=== PATIENT | female | born 1940 | race Caucasian/White ===

== ENCOUNTER 2017-08-17 06:53 | Emergency (ER) | payer MEDICARE, MEDICAID ==
[2017-08-17] MEDS ORDERED: Metoclopramide 10 MG/2 ML SDV IVPUSH ONE (07:32)
[2017-08-17] MEDS ORDERED: HYDROmorphone 0.5 MG/0.5 ML Syringe IVPUSH ONE (07:32)
--- NOTE | 2017-08-17 07:37 | EDM.PDOC ---
ED HPI GENERAL MEDICAL PROBLEM - General Chief Complaint: Abdominal Pain Stated Complaint: RT SIDE AND BACK PAIN Time Seen by Provider: 08/17/17 07:31 Source of Information: Reports: Patient, Family (spouse and son. ) History Limitations: Reports: No Limitations - History of Present Illness INITIAL COMMENTS - FREE TEXT/NARRATIVE: 77-year-old female presents to the ED with diffuse right upper quadrant abdominal pain that radiates laterally towards her right flank. She states it started more in her back yesterday afternoon and gradually worsened as the day went on. When she got up to void at 4:00 this morning became much more intense and severe. Pain is constant with a colicky component. She has a hard time reading it but gives it a rate of 7-10 at times. Associated nausea without any vomiting. Lots of burping and belching. No previous similar type pain. No history of kidney stones. She does have a feeling of need to void and has voided about 7 or 8 times since 4:00 this morning. She has no dysuria or urgency to it. I'll function has been normal without any blood. Last bowel movement was yesterday morning.she has had no previous abdominal surgery. Onset: Gradual Onset Date: 08/16/17 Onset Time: 14:00 Duration: Hour(s):, Getting Worse Location: Reports: Abdomen ( He does not radiate down towards the groin.) Quality: Reports: Ache, Sharp, Stabbing (strong colicky component to the pain), Other Severity: Moderate Improves with: Reports: None (grades it is 78 out of 10.), Other (cannot sleep since for this morning no position is comfortable.) Worsens with: Reports: None Context: Denies: Activity, Exercise, Lifting, Sick Contact, Trauma, Other Associated Symptoms: Reports: Nausea/Vomiting (mild nausea without any vomiting) . 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: Other (see below) (none.) Right Flank Pain Score (Numeric/FACES): 6 - Related Data Allergies Allergy/AdvReac Type Severity Reaction Status Date / Time No Known Allergies Allergy Verified 08/17/17 07:04 Home Meds: Home Meds Levothyroxine [Synthroid] 50 mcg PO DAILY 08/17/17 [History] Losartan [Cozaar] 25 mg PO DAILY 08/17/17 [History] Nitrofurantoin [place]/Macrocryst [Macrobid] 100 mg PO BID #14 cap 08/17/17 [Rx] Ondansetron [Zofran ODT] 4 mg PO Q6H #5 tab.dis 08/17/17 [Rx] Pravastatin [Pravachol] 10 mg PO DAILY 08/17/17 [History] glipiZIDE [Glucotrol] 5 mg PO ACBREAKFAST 08/17/17 [History] oxyCODONE HCl/Acetaminophen [Percocet 5-325 mg Tablet] 1 - 2 each PO Q4H PRN # 16 tablet 08/17/17 [Rx] Past Medical History Cardiovascular History: Reports: High Cholesterol, Hypertension 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 Denies: Fever, Chills HEENT: Reports: No Symptoms Respiratory: Reports: No Symptoms Cardiovascular: Reports: No Symptoms Endocrine: Reports: No Symptoms GI/Abdominal: Reports: Abdominal Pain, Decreased Appetite, Flatus, Nausea. Denies: Constipation, Diarrhea (see history present illness), Distension, Hematemesis, Hematochezia, Mucous in Stool, Stool Incontinence, Vomiting ( intermittently), Other : Reports: Frequency, Incontinence (does have some mild stress and urge incontinence.) Musculoskeletal: Reports: Back Pain. Denies: Hand Pain (right flank pain.), Leg Pain, Foot Pain, Joint Pain, Joint Swelling Skin: Reports: No Symptoms Neurological: Reports: No Symptoms Psychiatric: Reports: No Symptoms Hematologic/Lymphatic: Reports: No Symptoms Immunologic: Reports: No Symptoms ED EXAM, GI/ABD - Physical Exam Exam: See Below Exam Limited By: No Limitations General Appearance: Alert, WD/WN, Mild Distress, Other (appears very tired from not sleeping.) Eyes: Bilateral: Normal Appearance (no jaundice.) Throat/Mouth: Other Head: Atraumatic Neck: Supple, Non-Tender, Full Range of Motion. No: Carotid Bruit, Lymphadenopathy (L), Lymphadenopathy (R) Respiratory/Chest: No Respiratory Distress, Lungs Clear, Normal Breath Sounds, No Accessory Muscle Use Cardiovascular: Normal Peripheral Pulses, Regular Rate, Rhythm, No Edema, No Murmur GI/Abdominal Exam: Normal Bowel Sounds, Soft, No Organomegaly, Distended ( slightly tympanitic to percussion throughout the abdomen), Tender (tenderness the right upper quadrant with a mildly positive Wilson sign.), Abnormal Bowel Sounds (.normal) Back Exam: Full Range of Motion, CVA Tenderness (R). No: CVA Tenderness (L) ( mild.) Extremities: Normal Inspection, Normal Range of Motion, Non-Tender, No Pedal Edema Neurological: Alert, Oriented, CN II-XII Intact, Normal Cognition, Normal Gait Psychiatric: Normal Affect, Normal Mood Skin Exam: Warm, Dry, Intact, Normal Color, No Rash Course - Vital Signs Last Recorded V/S: Last Vital Signs Temp 36.3 C 08/17/17 07:05 Pulse 90 08/17/17 07:05 Resp 16 08/17/17 07:05 BP 172/88 H 08/17/17 07:05 Pulse Ox 96 08/17/17 07:05 - Orders/Labs/Meds Orders: Active Orders 24 hr Category Date Time Status Abdomen 1V Flat [CR] Stat Exams 08/17/17 07:33 Taken Abdomen Pelvis w Cont [CT] Stat Exams 08/17/17 10:10 Taken Abdomen Pelvis wo Cont [CT] Stat Exams 08/17/17 08:42 Taken CULTURE URINE [RM] Stat Lab 08/17/17 08:45 Received Dextrose 5%-0.9% NaCl [Dextrose 5%-Normal Saline] 1,000 Med 08/17/17 07:45 Active ml IV ASDIRECTED Sodium Chloride 0.9% [Normal Saline] 100 ml Med 08/17/17 10:30 Active IV ASDIRECTED Sodium Chloride 0.9% [Saline Flush] Med 08/17/17 10:17 Active 10 ml FLUSH ONETIME PRN Medication Orders Dextrose/Sodium Chloride (Dextrose 5%-Normal Saline) 1,000 mls @ 250 mls/hr IV ASDIRECTED AIMEE Last Admin: 08/17/17 07:54 Dose: 250 mls/hr Sodium Chloride (Normal Saline) 100 mls @ 65 mls/hr IV ASDIRECTED AIMEE Last Admin: 08/17/17 10:43 Dose: 65 mls/hr Sodium Chloride (Saline Flush) 10 ml FLUSH ONETIME PRN PRN Reason: IV FLUSH Last Admin: 08/17/17 10:43 Dose: 10 ml Labs: Laboratory Tests 08/17/17 08/17/17 08/17/17 Range/Units 07:10 07:10 07:10 WBC 7.98 (3.98-10.04) K/mm3 RBC 4.70 (3.98-5.22) M/mm3 Hgb 14.3 (11.2-15.7) gm/L Hct 41.9 (34.1-44.9) % MCV 89.1 (79.4-94.8) fl MCH 30.4 (25.6-32.2) pg MCHC 34.1 (32.2-35.5) g/dl RDW Std Deviation 41.6 (36.4-46.3) fL Plt Count 208 (182-369) K/mm3 MPV 10.6 (9.4-12.3) fl Neutrophils % (Manual) 75 H (40-60) % Band Neutrophils % 0 (0-10) % Lymphocytes % (Manual) 22 (20-40) % Atypical Lymphs % 0 % Monocytes % (Manual) 3 (2-10) % Eosinophils % (Manual) 0 L (0.7-5.8) % Basophils % (Manual) 0 L (0.1-1.2) Platelet Estimate Adequate RBC Morph Comment Normal PT 9.9 (8.0-13.0) SECONDS INR 0.91 Sodium 139 (136-145) mEq/L Potassium 3.8 (3.5-5.1) mEq/L Chloride 102 (98-107) mEq/L Carbon Dioxide 24 (21-32) mEq/L Anion Gap 16.8 H (5-15) BUN 14 (7-18) mg/dL Creatinine 1.0 (0.55-1.02) mg/dL Est Cr Clr Drug Dosing 35.55 mL/min Estimated GFR (MDRD) 54 (>60) mL/min BUN/Creatinine Ratio 14.0 (14-18) Glucose 214 H (83-115) mg/dL Calcium 9.4 (8.5-10.1) mg/dL Magnesium 1.6 L (1.8-2.4) mg/dl Total Bilirubin 0.6 (0.2-1.0) mg/dL AST 22 (15-37) U/L ALT 22 (14-59) U/L Alkaline Phosphatase 101 (46-116) U/L Troponin I 0.046 (0.00-0.056) ng/mL C-Reactive Protein 0.8 (<1.0) mg/dL Total Protein 7.7 (6.4-8.2) g/dl Albumin 4.1 (3.4-5.0) g/dl Globulin 3.6 gm/dL Albumin/Globulin Ratio 1.1 (1-2) Lipase 275 (73-393) U/L Urine Color (Yellow) Urine Appearance (Clear) Urine pH (5.0-8.0) Ur Specific [place] (1.005-1.030) Urine Protein (Negative) Urine Glucose (UA) (Negative) Urine Ketones (Negative) Urine Occult Blood (Negative) Urine Nitrite (Negative) Urine Bilirubin (Negative) Urine Urobilinogen (0.2-1.0) Ur Leukocyte Esterase (Negative) Urine RBC (0-5) /hpf Urine WBC (0-5) /hpf Ur Epithelial Cells (0-5) /hpf Urine Bacteria (FEW) /hpf Urine Mucus (FEW) /hpf 08/17/17 Range/Units 08:45 WBC (3.98-10.04) K/mm3 RBC (3.98-5.22) M/mm3 Hgb (11.2-15.7) gm/L Hct (34.1-44.9) % MCV (79.4-94.8) fl MCH (25.6-32.2) pg MCHC (32.2-35.5) g/dl RDW Std Deviation (36.4-46.3) fL Plt Count (182-369) K/mm3 MPV (9.4-12.3) fl Neutrophils % (Manual) (40-60) % Band Neutrophils % (0-10) % Lymphocytes % (Manual) (20-40) % Atypical Lymphs % % Monocytes % (Manual) (2-10) % Eosinophils % (Manual) (0.7-5.8) % Basophils % (Manual) (0.1-1.2) Platelet Estimate RBC Morph Comment PT (8.0-13.0) SECONDS INR Sodium (136-145) mEq/L Potassium (3.5-5.1) mEq/L Chloride (98-107) mEq/L Carbon Dioxide (21-32) mEq/L Anion Gap (5-15) BUN (7-18) mg/dL Creatinine (0.55-1.02) mg/dL Est Cr Clr Drug Dosing mL/min Estimated GFR (MDRD) (>60) mL/min BUN/Creatinine Ratio (14-18) Glucose (83-115) mg/dL Calcium (8.5-10.1) mg/dL Magnesium (1.8-2.4) mg/dl Total Bilirubin (0.2-1.0) mg/dL AST (15-37) U/L ALT (14-59) U/L Alkaline Phosphatase (46-116) U/L Troponin I (0.00-0.056) ng/mL C-Reactive Protein (<1.0) mg/dL Total Protein (6.4-8.2) g/dl Albumin (3.4-5.0) g/dl Globulin gm/dL Albumin/Globulin Ratio (1-2) Lipase (73-393) U/L Urine Color Yellow (Yellow) Urine Appearance Clear (Clear) Urine pH 6.0 (5.0-8.0) Ur Specific [place] 1.025 (1.005-1.030) Urine Protein 1+ H (Negative) Urine Glucose (UA) Trace H (Negative) Urine Ketones Negative (Negative) Urine Occult Blood Trace-intact H (Negative) Urine Nitrite Positive H (Negative) Urine Bilirubin Negative (Negative) Urine Urobilinogen 0.2 (0.2-1.0) Ur Leukocyte Esterase Negative (Negative) Urine RBC 5-10 H (0-5) /hpf Urine WBC 5-10 H (0-5) /hpf Ur Epithelial Cells 0-5 (0-5) /hpf Urine Bacteria Many H (FEW) /hpf Urine Mucus Not seen (FEW) /hpf Meds: Medications Generic Name Dose Route Start Last Admin Trade Name Freq PRN Reason Stop Dose Admin Dextrose/Sodium Chloride 1,000 mls @ 250 mls/hr 08/17/17 07:45 08/17/17 07:54 Dextrose 5%-Normal Saline IV 250 mls/hr ASDIRECTED AIMEE Administration Sodium Chloride 100 mls @ 65 mls/hr 08/17/17 10:30 08/17/17 10:43 Normal Saline IV 65 mls/hr ASDIRECTED AIMEE Administration Sodium Chloride 10 ml 08/17/17 10:17 08/17/17 10:43 Saline Flush FLUSH 10 ml ONETIME PRN Administration IV FLUSH Discontinued Medications Generic Name Dose Route Start Last Admin Trade Name Freq PRN Reason Stop Dose Admin Hydromorphone HCl 0.5 mg 08/17/17 07:32 08/17/17 07:45 Dilaudid IVPUSH 08/17/17 07:33 0.5 mg ONETIME ONE Administration Ceftriaxone Sodium 1 gm/ 100 mls @ 200 mls/hr 08/17/17 10:10 08/17/17 10:55 Sodium Chloride IV 08/17/17 10:39 200 mls/hr ONETIME ONE Administration Iopamidol 100 ml 08/17/17 10:17 08/17/17 10:43 [id number] (76%) IVPUSH 08/17/17 10:18 100 ml ONETIME ONE Administration Metoclopramide HCl 7.5 mg 08/17/17 07:32 08/17/17 07:51 Reglan IVPUSH 08/17/17 07:33 7.5 mg ONETIME ONE Administration - Radiology Interpretation Free Text/Narrative:: 77-year-old female presents to the ED with right upper quadrant abdominal pain that seems to have started in the right flank and radiating around laterally to the right upper quadrant. Started about 14 1500 hrs. yesterday afternoon and is progressing progressively worsened. It became very intense about 0400 hrs. this morning when she got up to void and she has voided about 7 times since suggesting irritation of the ureter on the right side. Nobody of a large stone obstructing the UPJ clinically. Should nausea without vomiting. Plan urinalysis. IV will be D5 normal saline 250 mils per hour. Given Reglan 7.5 mg IV with Dilaudid 0.5 mg IV for pain relief. Given the abdomen will be obtained. - Re-Assessments/Exams Free Text/Narrative Re-Assessment/Exam: 08/17/17 08: KUB reveals scattered stool and air throughout the colon. There is one dilated slightly dilated loop of small bowel left lower quadrant but no signs of obstruction. No signs of renal stones were evident. 08/17/17 08:41Labs are back. White count was 7.98. Differential reveals 75% neutrophils no bands. Hemoglobin is 14.3. Hematocrit of 41.9. Platelets normal 208,000. PT is 9.9 INR 0.91. Chemistry shows a sodium of 139 potassium 3.8. Toward 102 bicarbonate 24. Anion gap mildly elevated at 16.8. BUNs 14 creatinine 1.0 EGFR is 54. Glucose elevated at 214. Magnesium slightly low at 1.6. Bilirubin 0.6 AST and ALT are both 22. Alkaline phosphatase 101. Troponin is less than 0.046. C-reactive protein 0.8 lipase normal at 275. Urinalysis is pending. I will go ahead and have CT the abdomen performed per renal protocol looking for stone 08/17/17 09:10 urinalysis is revealing positive nitrate with trace of blood. There is 5-10 RBCs and 5-10 WBCs per power field with many bacteria. Urine culture ordered. 08/17/17 10:11CT exam does not reveal any ureter obstructionon the Rt.. No definitive stone in the kidney or ureters.there are numerous peripelvic cysts on the right side. There is however a 2.6 cm homogenous mass in the superior pole of the right kidney suspicious for malignancy.she has a large gallstone in the base of the gallbladder and I think several small little stones as well. I will therefore have CT of the abdomen and pelvis performed with IV contrast only. Creatinine is 1.0. I will also give her Rocephin 1 g intravenously for suspect urinary tract infection. 08/17/17 11:03CT of the abdomen and pelvis done with contrast does identify a mass in the superior pole of the right kidney that takes up a large amount of contrast indicating that is highly vascular since suspicious for a malignancy. Doubt that this is hurting her. This is a coincidental finding. Therefore I think her pain is likely gallbladder in origin versus renal colic or ureteric colic from infection. I'm going to allow her home on a low-fat diet clear fluids primarily today such as Gatorade Powerade and advancing to soup broth and carbohydrate diet later today. I will send her home with 10 Percocet 5/3/25 milligram tablets one or 2 every 4-6 hours needed for pain relief. I'm going to continue oral antibiotic in the form of Macrobid 100 mg twice daily for 7 days to clear up urinary tract infection. She will need a referral to urology to discuss treatment for suspect right renal mass. Departure - Departure Time of Disposition: 10:13 Disposition: Home, Self-Care 01 Condition: Fair Clinical Impression: Right kidney mass Urinary tract infection Qualifiers: Urinary tract infection type: site unspecified Hematuria presence: without hematuria Qualified Code(s): N39.0 - Urinary tract infection, site not specified Cholelithiasis Qualifiers: Cholelithiasis location: gallbladder Cholecystitis acuity: acute Biliary obstruction: without biliary obstruction - Discharge Information Prescriptions: Nitrofurantoin [place]/Macrocryst [Macrobid] 100 mg PO BID #14 cap Ondansetron [Zofran ODT] 4 mg PO Q6H #5 tab.dis oxyCODONE HCl/Acetaminophen [Percocet 5-325 mg Tablet] 1 - 2 each PO Q4H PRN # 16 tablet PRN Reason: pain relief. Referrals: Marcelo Jackson MD [Primary Care Provider] - Forms: ED Department Discharge Additional Instructions: ED HPI GENERAL MEDICAL PROBLEM - General Chief Complaint: Abdominal Pain Stated Complaint: RT SIDE AND BACK PAIN Time Seen by Provider: 08/17/17 07:31 Source of Information: Reports: Patient, Family (spouse and son. ) History Limitations: Reports: No Limitations - History of Present Illness INITIAL COMMENTS - FREE TEXT/NARRATIVE: 77-year-old female presents to the ED with diffuse right upper quadrant abdominal pain that radiates laterally towards her right flank. She states it started more in her back yesterday afternoon and gradually worsened as the day went on. When she got up to void at 4:00 this morning became much more intense and severe. Pain is constant with a colicky component. She has a hard time reading it but gives it a rate of 7-10 at times. Associated nausea without any vomiting. Lots of burping and belching. No previous similar type pain. No history of kidney stones. She does have a feeling of need to void and has voided about 7 or 8 times since 4:00 this morning. She has no dysuria or urgency to it. I'll function has been normal without any blood. Last bowel movement was yesterday morning.she has had no previous abdominal surgery. Onset: Gradual Onset Date: 08/16/17 Onset Time: 14:00 Duration: Hour(s):, Getting Worse Location: Reports: Abdomen ( He does not radiate down towards the groin.) Quality: Reports: Ache, Sharp, Stabbing (strong colicky component to the pain), Other Severity: Moderate Improves with: Reports: None (grades it is 78 out of 10.), Other (cannot sleep since for this morning no position is comfortable.) Worsens with: Reports: None Context: Denies: Activity, Exercise, Lifting, Sick Contact, Trauma, Other Associated Symptoms: Reports: Nausea/Vomiting (mild nausea without any vomiting) . 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: Other (see below) (none.) Right Flank Pain Score (Numeric/FACES): 6 - Related Data Allergies Allergy/AdvReac Type Severity Reaction Status Date / Time No Known Allergies Allergy Verified 08/17/17 07:04 Home Meds: Home Meds Levothyroxine [Synthroid] 50 mcg PO DAILY 08/17/17 [History] Losartan [Cozaar] 25 mg PO DAILY 08/17/17 [History] Nitrofurantoin [place]/Macrocryst [Macrobid] 100 mg PO BID #14 cap 08/17/17 [Rx] Pravastatin [Pravachol] 10 mg PO DAILY 08/17/17 [History] glipiZIDE [Glucotrol] 5 mg PO ACBREAKFAST 08/17/17 [History] oxyCODONE HCl/Acetaminophen [Percocet 5-325 mg Tablet] 1 - 2 each PO Q4H PRN # 16 tablet 08/17/17 [Rx] Past Medical History Cardiovascular History: Reports: High Cholesterol, Hypertension 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 Denies: Fever, Chills HEENT: Reports: No Symptoms Respiratory: Reports: No Symptoms Cardiovascular: Reports: No Symptoms Endocrine: Reports: No Symptoms GI/Abdominal: Reports: Abdominal Pain, Decreased Appetite, Flatus, Nausea. Denies: Constipation, Diarrhea (see history present illness), Distension, Hematemesis, Hematochezia, Mucous in Stool, Stool Incontinence, Vomiting ( intermittently), Other : Reports: Frequency, Incontinence (does have some mild stress and urge incontinence.) Musculoskeletal: Reports: Back Pain. Denies: Hand Pain (right flank pain.), Leg Pain, Foot Pain, Joint Pain, Joint Swelling Skin: Reports: No Symptoms Neurological: Reports: No Symptoms Psychiatric: Reports: No Symptoms Hematologic/Lymphatic: Reports: No Symptoms Immunologic: Reports: No Symptoms ED EXAM, GI/ABD - Physical Exam Exam: See Below Exam Limited By: No Limitations General Appearance: Alert, WD/WN, Mild Distress, Other (appears very tired from not sleeping.) Eyes: Bilateral: Normal Appearance (no jaundice.) Throat/Mouth: Other Head: Atraumatic Neck: Supple, Non-Tender, Full Range of Motion. No: Carotid Bruit, Lymphadenopathy (L), Lymphadenopathy (R) Respiratory/Chest: No Respiratory Distress, Lungs Clear, Normal Breath Sounds, No Accessory Muscle Use Cardiovascular: Normal Peripheral Pulses, Regular Rate, Rhythm, No Edema, No Murmur GI/Abdominal Exam: Normal Bowel Sounds, Soft, No Organomegaly, Distended ( slightly tympanitic to percussion throughout the abdomen), Tender (tenderness the right upper quadrant with a mildly positive Wilson sign.), Abnormal Bowel Sounds (.normal) Back Exam: Full Range of Motion, CVA Tenderness (R). No: CVA Tenderness (L) ( mild.) Extremities: Normal Inspection, Normal Range of Motion, Non-Tender, No Pedal Edema Neurological: Alert, Oriented, CN II-XII Intact, Normal Cognition, Normal Gait Psychiatric: Normal Affect, Normal Mood Skin Exam: Warm, Dry, Intact, Normal Color, No Rash Course - Vital Signs Last Recorded V/S: Last Vital Signs Temp 36.3 C 08/17/17 07:05 Pulse 90 08/17/17 07:05 Resp 16 08/17/17 07:05 BP 172/88 H 08/17/17 07:05 Pulse Ox 96 08/17/17 07:05 - Orders/Labs/Meds Orders: Active Orders 24 hr Category Date Time Status Abdomen 1V Flat [CR] Stat Exams 08/17/17 07:33 Taken Abdomen Pelvis w Cont [CT] Stat Exams 08/17/17 10:10 Taken Abdomen Pelvis wo Cont [CT] Stat Exams 08/17/17 08:42 Taken CULTURE URINE [RM] Stat Lab 08/17/17 08:45 Received Dextrose 5%-0.9% NaCl [Dextrose 5%-Normal Saline] 1,000 Med 08/17/17 07:45 Active ml IV ASDIRECTED Sodium Chloride 0.9% [Normal Saline] 100 ml Med 08/17/17 10:30 Active IV ASDIRECTED Sodium Chloride 0.9% [Saline Flush] Med 08/17/17 10:17 Active 10 ml FLUSH ONETIME PRN Medication Orders Dextrose/Sodium Chloride (Dextrose 5%-Normal Saline) 1,000 mls @ 250 mls/hr IV ASDIRECTED AIMEE Last Admin: 08/17/17 07:54 Dose: 250 mls/hr Sodium Chloride (Normal Saline) 100 mls @ 65 mls/hr IV ASDIRECTED AIMEE Last Admin: 08/17/17 10:43 Dose: 65 mls/hr Sodium Chloride (Saline Flush) 10 ml FLUSH ONETIME PRN PRN Reason: IV FLUSH Last Admin: 08/17/17 10:43 Dose: 10 ml Labs: Laboratory Tests 08/17/17 08/17/17 08/17/17 Range/Units 07:10 07:10 07:10 WBC 7.98 (3.98-10.04) K/mm3 RBC 4.70 (3.98-5.22) M/mm3 Hgb 14.3 (11.2-15.7) gm/L Hct 41.9 (34.1-44.9) % MCV 89.1 (79.4-94.8) fl MCH 30.4 (25.6-32.2) pg MCHC 34.1 (32.2-35.5) g/dl RDW Std Deviation 41.6 (36.4-46.3) fL Plt Count 208 (182-369) K/mm3 MPV 10.6 (9.4-12.3) fl Neutrophils % (Manual) 75 H (40-60) % Band Neutrophils % 0 (0-10) % Lymphocytes % (Manual) 22 (20-40) % Atypical Lymphs % 0 % Monocytes % (Manual) 3 (2-10) % Eosinophils % (Manual) 0 L (0.7-5.8) % Basophils % (Manual) 0 L (0.1-1.2) Platelet Estimate Adequate RBC Morph Comment Normal PT 9.9 (8.0-13.0) SECONDS INR 0.91 Sodium 139 (136-145) mEq/L Potassium 3.8 (3.5-5.1) mEq/L Chloride 102 (98-107) mEq/L Carbon Dioxide 24 (21-32) mEq/L Anion Gap 16.8 H (5-15) BUN 14 (7-18) mg/dL Creatinine 1.0 (0.55-1.02) mg/dL Est Cr Clr Drug Dosing 35.55 mL/min Estimated GFR (MDRD) 54 (>60) mL/min BUN/Creatinine Ratio 14.0 (14-18) Glucose 214 H (83-115) mg/dL Calcium 9.4 (8.5-10.1) mg/dL Magnesium 1.6 L (1.8-2.4) mg/dl Total Bilirubin 0.6 (0.2-1.0) mg/dL AST 22 (15-37) U/L ALT 22 (14-59) U/L Alkaline Phosphatase 101 (46-116) U/L Troponin I 0.046 (0.00-0.056) ng/mL C-Reactive Protein 0.8 (<1.0) mg/dL Total Protein 7.7 (6.4-8.2) g/dl Albumin 4.1 (3.4-5.0) g/dl Globulin 3.6 gm/dL Albumin/Globulin Ratio 1.1 (1-2) Lipase 275 (73-393) U/L Urine Color (Yellow) Urine Appearance (Clear) Urine pH (5.0-8.0) Ur Specific [place] (1.005-1.030) Urine Protein (Negative) Urine Glucose (UA) (Negative) Urine Ketones (Negative) Urine Occult Blood (Negative) Urine Nitrite (Negative) Urine Bilirubin (Negative) Urine Urobilinogen (0.2-1.0) Ur Leukocyte Esterase (Negative) Urine RBC (0-5) /hpf Urine WBC (0-5) /hpf Ur Epithelial Cells (0-5) /hpf Urine Bacteria (FEW) /hpf Urine Mucus (FEW) /hpf 08/17/17 Range/Units 08:45 WBC (3.98-10.04) K/mm3 RBC (3.98-5.22) M/mm3 Hgb (11.2-15.7) gm/L Hct (34.1-44.9) % MCV (79.4-94.8) fl MCH (25.6-32.2) pg MCHC (32.2-35.5) g/dl RDW Std Deviation (36.4-46.3) fL Plt Count (182-369) K/mm3 MPV (9.4-12.3) fl Neutrophils % (Manual) (40-60) % Band Neutrophils % (0-10) % Lymphocytes % (Manual) (20-40) % Atypical Lymphs % % Monocytes % (Manual) (2-10) % Eosinophils % (Manual) (0.7-5.8) % Basophils % (Manual) (0.1-1.2) Platelet Estimate RBC Morph Comment PT (8.0-13.0) SECONDS INR Sodium (136-145) mEq/L Potassium (3.5-5.1) mEq/L Chloride (98-107) mEq/L Carbon Dioxide (21-32) mEq/L Anion Gap (5-15) BUN (7-18) mg/dL Creatinine (0.55-1.02) mg/dL Est Cr Clr Drug Dosing mL/min Estimated GFR (MDRD) (>60) mL/min BUN/Creatinine Ratio (14-18) Glucose (83-115) mg/dL Calcium (8.5-10.1) mg/dL Magnesium (1.8-2.4) mg/dl Total Bilirubin (0.2-1.0) mg/dL AST (15-37) U/L ALT (14-59) U/L Alkaline Phosphatase (46-116) U/L Troponin I (0.00-0.056) ng/mL C-Reactive Protein (<1.0) mg/dL Total Protein (6.4-8.2) g/dl Albumin (3.4-5.0) g/dl Globulin gm/dL Albumin/Globulin Ratio (1-2) Lipase (73-393) U/L Urine Color Yellow (Yellow) Urine Appearance Clear (Clear) Urine pH 6.0 (5.0-8.0) Ur Specific [place] 1.025 (1.005-1.030) Urine Protein 1+ H (Negative) Urine Glucose (UA) Trace H (Negative) Urine Ketones Negative (Negative) Urine Occult Blood Trace-intact H (Negative) Urine Nitrite Positive H (Negative) Urine Bilirubin Negative (Negative) Urine Urobilinogen 0.2 (0.2-1.0) Ur Leukocyte Esterase Negative (Negative) Urine RBC 5-10 H (0-5) /hpf Urine WBC 5-10 H (0-5) /hpf Ur Epithelial Cells 0-5 (0-5) /hpf Urine Bacteria Many H (FEW) /hpf Urine Mucus Not seen (FEW) /hpf Meds: Medications Generic Name Dose Route Start Last Admin Trade Name Freq PRN Reason Stop Dose Admin Dextrose/Sodium Chloride 1,000 mls @ 250 mls/hr 08/17/17 07:45 08/17/17 07:54 Dextrose 5%-Normal Saline IV 250 mls/hr ASDIRECTED AIMEE Administration Sodium Chloride 100 mls @ 65 mls/hr 08/17/17 10:30 08/17/17 10:43 Normal Saline IV 65 mls/hr ASDIRECTED AIMEE Administration Sodium Chloride 10 ml 08/17/17 10:17 08/17/17 10:43 Saline Flush FLUSH 10 ml ONETIME PRN Administration IV FLUSH Discontinued Medications Generic Name Dose Route Start Last Admin Trade Name Freq PRN Reason Stop Dose Admin Hydromorphone HCl 0.5 mg 08/17/17 07:32 08/17/17 07:45 Dilaudid IVPUSH 08/17/17 07:33 0.5 mg ONETIME ONE Administration Ceftriaxone Sodium 1 gm/ 100 mls @ 200 mls/hr 08/17/17 10:10 08/17/17 10:55 Sodium Chloride IV 08/17/17 10:39 200 mls/hr ONETIME ONE Administration Iopamidol 100 ml 08/17/17 10:17 08/17/17 10:43 Isovue-370 (76%) IVPUSH 08/17/17 10:18 100 ml ONETIME ONE Administration Metoclopramide HCl 7.5 mg 08/17/17 07:32 08/17/17 07:51 Reglan IVPUSH 08/17/17 07:33 7.5 mg ONETIME ONE Administration - Radiology Interpretation Free Text/Narrative:: 77-year-old female presents to the ED with right upper quadrant abdominal pain that seems to have started in the right flank and radiating around laterally to the right upper quadrant. Started about 14 1500 hrs. yesterday afternoon and is progressing progressively worsened. It became very intense about 0400 hrs. this morning when she got up to void and she has voided about 7 times since suggesting irritation of the ureter on the right side. Nobody of a large stone obstructing the UPJ clinically. Should nausea without vomiting. Plan urinalysis. IV will be D5 normal saline 250 mils per hour. Given Reglan 7.5 mg IV with Dilaudid 0.5 mg IV for pain relief. Given the abdomen will be obtained. - Re-Assessments/Exams Free Text/Narrative Re-Assessment/Exam: 08/17/17 08: KUB reveals scattered stool and air throughout the colon. There is one dilated slightly dilated loop of small bowel left lower quadrant but no signs of obstruction. No signs of renal stones were evident. 08/17/17 08:41Labs are back. White count was 7.98. Differential reveals 75% neutrophils no bands. Hemoglobin is 14.3. Hematocrit of 41.9. Platelets normal 208,000. PT is 9.9 INR 0.91. Chemistry shows a sodium of 139 potassium 3.8. Toward 102 bicarbonate 24. Anion gap mildly elevated at 16.8. BUNs 14 creatinine 1.0 EGFR is 54. Glucose elevated at 214. Magnesium slightly low at 1.6. Bilirubin 0.6 AST and ALT are both 22. Alkaline phosphatase 101. Troponin is less than 0.046. C-reactive protein 0.8 lipase normal at 275. Urinalysis is pending. I will go ahead and have CT the abdomen performed per renal protocol looking for stone 08/17/17 09:10 urinalysis is revealing positive nitrate with trace of blood. There is 5-10 RBCs and 5-10 WBCs per power field with many bacteria. Urine culture ordered. 08/17/17 10:11CT exam does not reveal any ureter obstructionon the Rt.. No definitive stone in the kidney or ureters.there are numerous peripelvic cysts on the right side. There is however a 2.6 cm homogenous mass in the superior pole of the right kidney suspicious for malignancy.she has a large gallstone in the base of the gallbladder and I think several small little stones as well. I will therefore have CT of the abdomen and pelvis performed with IV contrast only. Creatinine is 1.0. I will also give her Rocephin 1 g intravenously for suspect urinary tract infection. 08/17/17 11:03CT of the abdomen and pelvis done with contrast does identify a mass in the superior pole of the right kidney that takes up a large amount of contrast indicating that is highly vascular since suspicious for a malignancy. Doubt that this is hurting her. This is a coincidental finding. Therefore I think her pain is likely gallbladder in origin versus renal colic or ureteric colic from infection. I'm going to allow her home on a low-fat diet clear fluids primarily today such as Gatorade Powerade and advancing to soup broth and carbohydrate diet later today. I will send her home with 10 Percocet 5/3/25 milligram tablets one or 2 every 4-6 hours needed for pain relief. I'm going to continue oral antibiotic in the form of Macrobid 100 mg twice daily for 7 days to clear up urinary tract infection. She will need a referral to urology to discuss treatment for suspect right renal mass. Departure - Departure Time of Disposition: 10:13 Disposition: Home, Self-Care 01 Condition: Fair Clinical Impression: Right kidney mass Urinary tract infection Qualifiers: Urinary tract infection type: site unspecified Hematuria presence: without hematuria Qualified Code(s): N39.0 - Urinary tract infection, site not specified Cholelithiasis Qualifiers: Cholelithiasis location: gallbladder Cholecystitis acuity: acute Biliary obstruction: without biliary obstruction - Discharge Information Prescriptions: Nitrofurantoin [place]/Macrocryst [Macrobid] 100 mg PO BID #14 cap oxyCODONE HCl/Acetaminophen [Percocet 5-325 mg Tablet] 1 - 2 each PO Q4H PRN # 16 tablet PRN Reason: pain relief. Referrals: Marcelo Jackson MD [Primary Care Provider] - Forms: ED Department Discharge - My Orders Last 24 Hours: My Active Orders 08/17/17 07:33 Abdomen 1V Flat [CR] Stat 08/17/17 07:45 Dextrose 5%-0.9% NaCl [Dextrose 5%-Normal Saline] 1,000 ml IV ASDIRECTED 08/17/17 08:42 Abdomen Pelvis wo Cont [CT] Stat 08/17/17 08:45 CULTURE URINE [RM] Stat 08/17/17 10:10 Abdomen Pelvis w Cont [CT] Stat 08/17/17 10:17 Sodium Chloride 0.9% [Saline Flush] 10 ml FLUSH ONETIME PRN 08/17/17 10:30 Sodium Chloride 0.9% [Normal Saline] 100 ml IV ASDIRECTED - Assessment/Plan Last 24 Hours: My Active Orders 08/17/17 07:33 Abdomen 1V Flat [CR] Stat 08/17/17 07:45 Dextrose 5%-0.9% NaCl [Dextrose 5%-Normal Saline] 1,000 ml IV ASDIRECTED 08/17/17 08:42 Abdomen Pelvis wo Cont [CT] Stat 08/17/17 08:45 CULTURE URINE [RM] Stat 08/17/17 10:10 Abdomen Pelvis w Cont [CT] Stat 08/17/17 10:17 Sodium Chloride 0.9% [Saline Flush] 10 ml FLUSH ONETIME PRN 08/17/17 10:30 Sodium Chloride 0.9% [Normal Saline] 100 ml IV ASDIRECTED Evaluation the emergency room today in regards to development of right upper quadrant abdominal pain and right flank pain charting yesterday but worsening overnight.initial examination was unclear as to whether the gallbladder was the culprit versus kidney. Investigations reveal that there is a urinary tract infection process and you were treated with initial dose of antibiotic Rocephin 1 g intravenously while in the ED. Imaging of the right kidney and abdomen reveals gallstones within the gallbladder a large stone and several small stones which I think is likely the cause of your pain today. There was no sign of a kidney stone or blockage of the ureter drainage system of the right kidney. However the CT did identify a mass in the superior pole of the right kidney. Repeat CT scan of the abdomen with contrast revealed that there is a large amount of contrast uptake by this lesion suggesting that it is probably a cancer. Therefore further evaluation by urologist is required and likely definitive surgery to remove this tumor as it appears to be picked up coincidentally and therefore chance for cure is very high. I will send you home with some pain medication Percocet 03/13/25 one to 2 every 4-6 hours needed for pain relief and Zofran 4 mg under the tongue every 4-6 hours if needed for nausea relief. Diet today should be clear fluids for the next 12 hours such as Gatorade Powerade and when hungry suggest a nondairy soup etc. [place] noodle turkey rice. Suggest following a low fat diet for the next several days to prevent recurrence of gallbladder attack which I think caused her pain today. At some point time if you continue to have similar type pain in the right upper quadrant the gallbladder may also have to be removed. - My Orders Last 24 Hours: My Active Orders 08/17/17 07:33 Abdomen 1V Flat [CR] Stat 08/17/17 07:45 Dextrose 5%-0.9% NaCl [Dextrose 5%-Normal Saline] 1,000 ml IV ASDIRECTED 08/17/17 08:42 Abdomen Pelvis wo Cont [CT] Stat 08/17/17 08:45 CULTURE URINE [RM] Stat 08/17/17 10:10 Abdomen Pelvis w Cont [CT] Stat 08/17/17 10:17 Sodium Chloride 0.9% [Saline Flush] 10 ml FLUSH ONETIME PRN 08/17/17 10:30 Sodium Chloride 0.9% [Normal Saline] 100 ml IV ASDIRECTED - Assessment/Plan Last 24 Hours: My Active Orders 08/17/17 07:33 Abdomen 1V Flat [CR] Stat 08/17/17 07:45 Dextrose 5%-0.9% NaCl [Dextrose 5%-Normal Saline] 1,000 ml IV ASDIRECTED 08/17/17 08:42 Abdomen Pelvis wo Cont [CT] Stat 08/17/17 08:45 CULTURE URINE [RM] Stat 08/17/17 10:10 Abdomen Pelvis w Cont [CT] Stat 08/17/17 10:17 Sodium Chloride 0.9% [Saline Flush] 10 ml FLUSH ONETIME PRN 08/17/17 10:30 Sodium Chloride 0.9% [Normal Saline] 100 ml IV ASDIRECTED
[2017-08-17] MEDS ORDERED: Dextrose 5%-0.9% NaCl 1,000 ML IV SCH (07:45)
[2017-08-17 08:03] VITALS: BP 172/88
[2017-08-17] MEDS ORDERED: cefTRIAXone 1 GM in Sodium Chloride 0.9% 100 ML IV ONE (10:10)
[2017-08-17] MEDS ORDERED: Iopamidol 755 Mg/ML 100 ML Bottle IVPUSH ONE (10:17)
[2017-08-17] MEDS ORDERED: Sodium Chloride 0.9% 10 ML Syringe FLUSH PRN (10:17)
[2017-08-17] MEDS ORDERED: Sodium Chloride 0.9% 100 ML IV SCH (10:30)
--- NOTE | 2017-08-19 10:25 | CT ---
CT abdomen and abdomen (with contrast) Technique: Arterial phase imaging was obtained from above the dome of the diaphragm inferiorly through the kidneys. Delayed venous imaging then obtained through the same portions of the abdomen. Delayed 5 minute images were obtained from above the dome of the diaphragm inferiorly through the pubic symphysis. Comparison: Previous study of 08/13/12 and previous noncontrast study performed earlier on the same day. Findings: Previous mass seen on noncontrast study shows enhancement on current exam having pattern typical of neoplasm. This measures approximately 2.6 cm x 2.5 cm in size. No other abnormal enhancing lesions are seen within the kidneys. Mild parapelvic cysts are seen. Delayed images show no filling defects within the collecting system on either side. There is contrast excretion into the ureters and bladder. Renal vein shows enhancement without thrombus. Single renal arteries are identified. Visualized lung bases show mild fibrosis and scarring. Liver shows no focal abnormality. Spleen appears within normal limits. Adrenal glands show no nodule. Pancreas is within normal limits. Single gallstone again noted within the gallbladder. Aorta and iliac vessels shows atherosclerotic change without aneurysmal dilatation. No retroperitoneal adenopathy or mesenteric abnormalities are seen. Colonic diverticuli are again seen without diverticulitis. No pelvic mass or adenopathy is seen. Bone window settings were reviewed which show degenerative change within the spine. Impression: 1. Mass within the mid to lower right kidney most likely representing renal cell carcinoma. Given its slight change from prior CT exam of 08/13/12 this is most likely a low-grade. 2. Single renal arteries. Patent renal veins are noted. Incidental parapelvic cysts are seen. 3. No filling defects within the collecting system or ureters of either kidney. 4. Incidental gallstone again noted. Other incidental findings as noted above. Diagnostic code #9 I agree with preliminary report issued by [facility] ([facility] preliminary report dictated on 08/17/17, 12:18 PM Central Time)
--- NOTE | 2017-08-19 10:26 | CT ---
CT abdomen and pelvis Technique: Multiple axial sections were obtained from above the dome of the diaphragm inferiorly to the pubic symphysis. Intravenous and oral contrast not utilized. Comparison: Previous CT exam of 08/13/12. Findings: Solid appearing abnormality noted within the right mid to lower kidney. This measures about 2.6 cm. There is a similar finding being seen in retrospect on the right kidney previously measuring about 2.4 cm. This has minimally increased in size from previous exam making it suspicious for renal cell carcinoma although lower grade. Parapelvic cyst seen within both kidneys. No ureteral dilatation or ureteral stone is seen. Visualized lung bases show nothing acute. Liver shows no focal parenchymal abnormality. Adrenal glands show no nodule. Gallstone noted within the gallbladder. Pancreas is within normal limits. Aorta shows atherosclerotic calcification without aneurysm. No retroperitoneal adenopathy or mesenteric abnormalities are seen. Appendix is seen which appears normal. Diverticuli are seen within the descending and sigmoid colon without inflammatory change. No pelvic mass or adenopathy is seen. Impression: 1. 2.6 cm solid mass within the mid to lower right kidney. This is seen on retrospect from prior CT exam measuring 2.4 cm. Given the slight interval change findings are suspicious for renal cell carcinoma most likely low-grade. 2. Gallstone within the gallbladder. 3. Incidental parapelvic cysts and other incidental findings. Diagnostic code #9 I agree with preliminary report issued by [facility] ([facility] preliminary report dictated on 08/17/17, 10:46 AM Central Time)
--- NOTE | 2017-08-19 10:26 | CR ---
Abdomen: Supine view of the abdomen was obtained. Comparison: No prior abdominal x-ray. Bowel gas pattern appears normal. Calcifications are seen within the pelvis compatible with phleboliths. Bony structures appear within normal limits for the patient's age. Impression: 1. Incidental findings. Diagnostic code #2
== END 2017-08-17 11:52 | disposition home or self-care (01) ==
LOC: JD.ED 06:53
DX: K80.00 Calculus of gallbladder with acute cholecystitis without obstruction (principal); N28.89 Other specified disorders of kidney and ureter; N39.0 Urinary tract infection, site not specified; E78.00 Pure hypercholesterolemia, unspecified; I10 Essential (primary) hypertension; E11.9 Type 2 diabetes mellitus without complications; Z79.899 Other long term (current) drug therapy
CPT/HCPCS: 36415; 74000; 74176; 74177; 80053; 81001; 83690; 83735; 84484; 85025; 85610; 86140; 87086; 87088; 87186; 96361; 96365; 96375; 99285; J0696; J1170; J2765; J7030; J7042; J7050; Q9967

== ENCOUNTER 2019-07-09 17:18 | Emergency (ER) | payer MEDICARE, MEDICAID ==
[2019-07-09] MEDS ORDERED: Ondansetron 4 MG/2 ML SDV IVPUSH ONE (17:29)
[2019-07-09] MEDS ORDERED: Sodium Chloride 0.9% 10 ML Syringe FLUSH PRN (17:29)
[2019-07-09] MEDS ORDERED: Famotidine 20 MG/2 ML SDV IVPUSH ONE (17:29)
[2019-07-09] MEDS ORDERED: Sodium Chloride 0.9% 1,000 ML IV SCH (17:30)
[2019-07-09 17:32] VITALS: BP 147/83
--- NOTE | 2019-07-09 18:11 | EDM.PDOC ---
ED HPI GENERAL MEDICAL PROBLEM - General Chief Complaint: General Stated Complaint: CHEST PAIN,HIGH BLOOD SUGAR Time Seen by Provider: 07/09/19 17:28 Source of Information: Reports: Patient, Family History Limitations: Reports: No Limitations - History of Present Illness INITIAL COMMENTS - FREE TEXT/NARRATIVE: The patient presents with generalized weakness and chest pain. This has been going on for a day. She had 2 teeth removed this week. She has not been eating or drinking much since the procedure. She was on something for pain. She is worried because her blood sugar has been elevated. She is on glipizide for her blood sugars. She says the pain is in the chest and she is not short of breath. She has no fever, chills or cough. She has no abdominal pain, nausea or vomiting. She has no dysuria, diarrhea or constipation. Onset: Gradual Duration: Day(s): Location: Reports: Chest Quality: Reports: Sharp Severity: Moderate Improves with: Reports: None Worsens with: Reports: None Associated Symptoms: Reports: Chest Pain. Denies: Cough, Fever/Chills, Headaches, Nausea/Vomiting, Shortness of Breath Epigastric Pain Score (Numeric/FACES): 5 - Related Data Allergies Allergy/AdvReac Type Severity Reaction Status Date / Time No Known Allergies Allergy Verified 06/14/18 10:05 Home Meds: Home Meds Levothyroxine [Synthroid] 50 mcg PO DAILY 08/17/17 [History] Losartan [Cozaar] 25 mg PO DAILY 08/17/17 [History] Pravastatin [Pravachol] 10 mg PO DAILY 08/17/17 [History] glipiZIDE [Glucotrol] 5 mg PO ACBREAKFAST 08/17/17 [History] Cephalexin [Keflex] 500 mg PO BID #10 capsule 07/09/19 [Rx] Past Medical History Cardiovascular History: Reports: High Cholesterol, Hypertension Genitourinary History: Reports: Other (See Below) Other Genitourinary History: renal mass. Unsure if malignant. [employer] History: Reports: Endocrine/Metabolic History: Reports: Diabetes, Type II, Hypothyroidism Social & Family History - Family History Family Medical History: Noncontributory - Tobacco Use Smoking Status *Q: Never Smoker - Caffeine Use Caffeine Use: Reports: Coffee - Recreational Drug Use Recreational Drug Use: No - Living Situation & Occupation Living situation: Reports: Occupation: Retired ED ROS GENERAL - Review of Systems Review Of Systems: See Below Constitutional: Reports: No Symptoms HEENT: Reports: No Symptoms Respiratory: Reports: No Symptoms Cardiovascular: Reports: Chest Pain Endocrine: Reports: No Symptoms GI/Abdominal: Reports: No Symptoms : Reports: No Symptoms Musculoskeletal: Reports: No Symptoms ED EXAM, GENERAL - Physical Exam Exam: See Below Exam Limited By: No Limitations General Appearance: Alert, No Apparent Distress Ears: Normal External Exam Nose: Normal Inspection Throat/Mouth: Normal Inspection Head: Atraumatic, Normocephalic Neck: Normal Inspection Respiratory/Chest: No Respiratory Distress, Lungs Clear, Normal Breath Sounds Cardiovascular: Regular Rate, Rhythm, No Edema, No Murmur GI/Abdominal: Soft, Non-Tender, No Organomegaly, No Mass Back Exam: Normal Inspection Extremities: Normal Inspection Course - Vital Signs Last Recorded V/S: Last Vital Signs Temp 98.2 F 07/09/19 17:29 Pulse 110 H 07/09/19 17:29 Resp 18 07/09/19 17:29 BP 147/83 H 07/09/19 17:29 Pulse Ox 93 L 07/09/19 17:29 - Orders/Labs/Meds Orders: Active Orders 24 hr Category Date Time Status Cardiac Monitoring [RC] . DIRECTED Care 07/09/19 17:29 Active EKG Documentation Completion [RC] ASDIRECTED Care 07/09/19 17:26 Active Peripheral IV Care [RC] . DIRECTED Care 07/09/19 17:29 Active Chest 1V Frontal [CR] Stat Exams 07/09/19 17:29 Taken Sodium Chloride 0.9% [Normal Saline] 1,000 ml Med 07/09/19 17:30 Active IV .BOLUS Sodium Chloride 0.9% [Saline Flush] Med 07/09/19 17:29 Active 10 ml FLUSH ASDIRECTED PRN cephALEXin [Keflex] Med 07/09/19 19:24 Once 500 mg PO ONETIME ONE ED Antiemetic Medication Reflex [OM.PC] Stat Oth 07/09/19 17:29 Ordered Peripheral IV Insertion Adult [OM.PC] Stat Oth 07/09/19 17:29 Ordered EKG 12 Lead [EK] Stat Ther 07/09/19 17:26 Ordered Medication Orders Sodium Chloride (Normal Saline) 1,000 mls @ 1,000 mls/hr IV .BOLUS AIMEE Last Admin: 07/09/19 17:46 Dose: 1,000 mls/hr Sodium Chloride (Saline Flush) 10 ml FLUSH ASDIRECTED PRN PRN Reason: Keep Vein Open Last Admin: 07/09/19 17:46 Dose: 10 ml Labs: Laboratory Tests 07/09/19 07/09/19 07/09/19 Range/Units 17:28 17:45 17:45 WBC 8.15 (3.98-10.04) K/mm3 RBC 4.63 (3.98-5.22) M/mm3 Hgb 14.5 (11.2-15.7) gm/L Hct 42.2 (34.1-44.9) % MCV 91.1 (79.4-94.8) fl MCH 31.3 (25.6-32.2) pg MCHC 34.4 (32.2-35.5) g/dl RDW Std Deviation 41.1 (36.4-46.3) fL Plt Count 204 (182-369) K/mm3 MPV 10.4 (9.4-12.3) fl Neut % (Auto) 81.1 H (34.0-71.1) % Lymph % (Auto) 8.1 L (19.3-51.7) % [place] % (Auto) 10.1 (4.7-12.5) % Eos % (Auto) 0.2 L (0.7-5.8) Baso % (Auto) 0.1 (0.1-1.2) % Neut # (Auto) 6.61 H (1.56-6.13) K/mm3 Lymph # (Auto) 0.66 L (1.18-3.74) K/mm3 [place] # (Auto) 0.82 H (0.24-0.36) K/mm3 Eos # (Auto) 0.02 L (0.04-0.36) K/mm3 Baso # (Auto) 0.01 (0.01-0.08) K/mm3 Manual Slide Review Normal smear Sodium 136 (136-145) mEq/L Potassium 4.2 (3.5-5.1) mEq/L Chloride 102 (98-107) mEq/L Carbon Dioxide 24 (21-32) mEq/L Anion Gap 14.2 (5-15) BUN 19 H (7-18) mg/dL Creatinine 1.1 H (0.55-1.02) mg/dL Est Cr Clr Drug Dosing 32.80 mL/min Estimated GFR (MDRD) 48 (>60) mL/min BUN/Creatinine Ratio 17.3 (14-18) Glucose 318 H (83-115) mg/dL POC Glucose 304 H (83-110) mg/dL Calcium 9.2 (8.5-10.1) mg/dL Total Bilirubin 0.6 (0.2-1.0) mg/dL AST 12 L (15-37) U/L ALT 22 (14-59) U/L Alkaline Phosphatase 119 H (46-116) U/L Troponin I < 0.017 (0.00-0.056) ng/mL Total Protein 7.6 (6.4-8.2) g/dl Albumin 3.6 (3.4-5.0) g/dl Globulin 4.0 gm/dL Albumin/Globulin Ratio 0.9 L (1-2) Urine Color (Yellow) Urine Appearance (Clear) Urine pH (5.0-8.0) Ur Specific [place] (1.005-1.030) Urine Protein (Negative) Urine Glucose (UA) (Negative) Urine Ketones (Negative) Urine Occult Blood (Negative) Urine Nitrite (Negative) Urine Bilirubin (Negative) Urine Urobilinogen (0.2-1.0) Ur Leukocyte Esterase (Negative) Urine RBC (0-5) /hpf Urine WBC (0-5) /hpf Ur Squamous Epith Cells (0-5) /hpf Urine Bacteria (FEW) /hpf Urine Mucus (FEW) /hpf 07/09/19 07/09/19 Range/Units 18:55 19:00 WBC (3.98-10.04) K/mm3 RBC (3.98-5.22) M/mm3 Hgb (11.2-15.7) gm/L Hct (34.1-44.9) % MCV (79.4-94.8) fl MCH (25.6-32.2) pg MCHC (32.2-35.5) g/dl RDW Std Deviation (36.4-46.3) fL Plt Count (182-369) K/mm3 MPV (9.4-12.3) fl Neut % (Auto) (34.0-71.1) % Lymph % (Auto) (19.3-51.7) % [place] % (Auto) (4.7-12.5) % Eos % (Auto) (0.7-5.8) Baso % (Auto) (0.1-1.2) % Neut # (Auto) (1.56-6.13) K/mm3 Lymph # (Auto) (1.18-3.74) K/mm3 [place] # (Auto) (0.24-0.36) K/mm3 Eos # (Auto) (0.04-0.36) K/mm3 Baso # (Auto) (0.01-0.08) K/mm3 Manual Slide Review Sodium (136-145) mEq/L Potassium (3.5-5.1) mEq/L Chloride (98-107) mEq/L Carbon Dioxide (21-32) mEq/L Anion Gap (5-15) BUN (7-18) mg/dL Creatinine (0.55-1.02) mg/dL Est Cr Clr Drug Dosing mL/min Estimated GFR (MDRD) (>60) mL/min BUN/Creatinine Ratio (14-18) Glucose (83-115) mg/dL POC Glucose 281 H (83-110) mg/dL Calcium (8.5-10.1) mg/dL Total Bilirubin (0.2-1.0) mg/dL AST (15-37) U/L ALT (14-59) U/L Alkaline Phosphatase (46-116) U/L Troponin I (0.00-0.056) ng/mL Total Protein (6.4-8.2) g/dl Albumin (3.4-5.0) g/dl Globulin gm/dL Albumin/Globulin Ratio (1-2) Urine Color Light yellow (Yellow) Urine Appearance Slt cloudy H (Clear) Urine pH 5.5 (5.0-8.0) Ur Specific [place] 1.010 (1.005-1.030) Urine Protein Trace H (Negative) Urine Glucose (UA) 1+ H (Negative) Urine Ketones Negative (Negative) Urine Occult Blood 1+ H (Negative) Urine Nitrite Positive H (Negative) Urine Bilirubin Negative (Negative) Urine Urobilinogen 0.2 (0.2-1.0) Ur Leukocyte Esterase 1+ H (Negative) Urine RBC 0-5 (0-5) /hpf Urine WBC 40-50 H (0-5) /hpf Ur Squamous Epith Cells 0-5 (0-5) /hpf Urine Bacteria Many H (FEW) /hpf Urine Mucus Not seen (FEW) /hpf Meds: Medications Generic Name Dose Route Start Last Admin Trade Name Freq PRN Reason Stop Dose Admin Sodium Chloride 1,000 mls @ 1,000 mls/hr 07/09/19 17:30 07/09/19 17:46 Normal Saline IV 1,000 mls/hr .BOLUS AIMEE Administration Sodium Chloride 10 ml 07/09/19 17:29 07/09/19 17:46 Saline Flush FLUSH 10 ml ASDIRECTED PRN Administration Keep Vein Open Discontinued Medications Generic Name Dose Route Start Last Admin Trade Name Freq PRN Reason Stop Dose Admin Famotidine 20 mg 07/09/19 17:29 07/09/19 17:46 Pepcid IVPUSH 07/09/19 17:30 20 mg ONETIME ONE Administration Ondansetron HCl 4 mg 07/09/19 17:29 07/09/19 17:46 Zofran IVPUSH 07/09/19 17:30 4 mg ONETIME ONE Administration - Re-Assessments/Exams Free Text/Narrative Re-Assessment/Exam: 07/09/19 18:10 I ordered an IV NS 1L bolus, EKG, CXR, UA and labs. He oxygen saturations did drop so I had my nurse put her on some oxygen. 07/09/19 19:25 Her EKG shows a sinus tachycardia at a rate of 103 with no acute changes. Her CXR looks good. Her CBC looks good. Her creatinine is elevated at 1.1. Her glucose was 318. Her UA shows a UTI. Her oxygen saturations are better and she is on room air now. She feels much better. I will give her a keflex now and a prescription for more. Departure - Departure Time of Disposition: 19:30 Disposition: Home, Self-Care 01 Condition: Good Clinical Impression: UTI, Urinary tract infectious disease, Atypical chest pain - Discharge Information *PRESCRIPTION DRUG MONITORING PROGRAM REVIEWED*: No *COPY OF PRESCRIPTION DRUG MONITORING REPORT IN PATIENT CASA: No Prescriptions: Cephalexin [Keflex] 500 mg PO BID #10 capsule Referrals: Marcelo Jackson MD [Primary Care Provider] - 1 Week Forms: ED Department Discharge Additional Instructions: Take the keflex 2 times per day for 5 days. Drink plenty of fluids. Keep taking your medications as prescribed. Please return if you are worse. - My Orders Last 24 Hours: My Active Orders 07/09/19 17:26 EKG Documentation Completion [RC] ASDIRECTED EKG 12 Lead [EK] Stat 07/09/19 17:29 Cardiac Monitoring [RC] . DIRECTED Peripheral IV Care [RC] . DIRECTED Chest 1V Frontal [CR] Stat Sodium Chloride 0.9% [Saline Flush] 10 ml FLUSH ASDIRECTED PRN ED Antiemetic Medication Reflex [OM.PC] Stat Peripheral IV Insertion Adult [OM.PC] Stat 07/09/19 17:30 Sodium Chloride 0.9% [Normal Saline] 1,000 ml IV .BOLUS 07/09/19 19:24 cephALEXin [Keflex] 500 mg PO ONETIME ONE - Assessment/Plan Last 24 Hours: My Active Orders 07/09/19 17:26 EKG Documentation Completion [RC] ASDIRECTED EKG 12 Lead [EK] Stat 07/09/19 17:29 Cardiac Monitoring [RC] . DIRECTED Peripheral IV Care [RC] . DIRECTED Chest 1V Frontal [CR] Stat Sodium Chloride 0.9% [Saline Flush] 10 ml FLUSH ASDIRECTED PRN ED Antiemetic Medication Reflex [OM.PC] Stat Peripheral IV Insertion Adult [OM.PC] Stat 07/09/19 17:30 Sodium Chloride 0.9% [Normal Saline] 1,000 ml IV .BOLUS 07/09/19 19:24 cephALEXin [Keflex] 500 mg PO ONETIME ONE
[2019-07-09] MEDS ORDERED: Cephalexin 500 MG Cap PO ONE (19:24)
--- NOTE | 2019-07-10 08:32 | CR ---
Chest: Portable view of the chest was obtained. Comparison: No prior chest x-ray. Heart size is normal. Tortuous thoracic aorta is seen. Lungs are clear with no acute parenchymal change. Minimal scoliosis is noted within the spine. Impression: 1. Findings believed to be incidental. 2. Nothing acute is appreciated on portable chest x-ray. Diagnostic code #2
== END 2019-07-09 19:40 | disposition home or self-care (01) ==
LOC: JD.ED 17:18
DX: R07.89 Other chest pain (principal); N39.0 Urinary tract infection, site not specified; I10 Essential (primary) hypertension; E11.9 Type 2 diabetes mellitus without complications; E03.9 Hypothyroidism, unspecified; E78.00 Pure hypercholesterolemia, unspecified; Z79.84 Long term (current) use of oral hypoglycemic drugs; Z79.899 Other long term (current) drug therapy
CPT/HCPCS: 36415; 71045; 80053; 81001; 82962; 84484; 85025; 93005; 96361; 96374; 96375; 99285; A9270; J2405; J3490; J7040